=== PATIENT | male | born 1975 | race African-American/Black ===

== ENCOUNTER 2022-11-05 11:41 | Inpatient (IN) | payer OTHER ==
[2022-11-05 12:13] VITALS: BMI 33.2
[2022-11-05] MEDS ORDERED: MAGNESIUM HYDROX 2400MG/30ML ORAL SUSPENSION 30 ML CUP PO PRN (13:31)
[2022-11-05] MEDS ORDERED: BENZONATATE 200 MG CAPSULE PO PRN (13:31)
[2022-11-05] MEDS ORDERED: guaiFENesin 600 MG TABLET.ER (FP) PO PRN (13:31)
[2022-11-05] MEDS ORDERED: LOPERAMIDE HCL 2 MG CAPSULE PO PRN (13:31)
[2022-11-05] MEDS ORDERED: TUBERCULIN PPD 5 TU/0.1ML SYRINGE (IN PATIENT USE ONLY) ID ONE (13:31)
[2022-11-05] MEDS ORDERED: hydrOXYzine PAMOATE 25 MG CAPSULE (FP) PO PRN (13:31)
[2022-11-05] MEDS ORDERED: ACETAMINOPHEN 325 MG TABLET (FP) PO PRN (13:31)
[2022-11-05] MEDS ORDERED: IBUPROFEN 600 MG TABLET (FP) PO PRN (13:31)
[2022-11-05] MEDS ORDERED: NALOXONE HCL (KLOXXADO) 8 MG SPRAY NS PRN (13:31)
[2022-11-05] MEDS ORDERED: POLYETHYLENE GLYCOL (HEALTHYLAX) 3350 17 GM PACKET PO PRN (13:31)
[2022-11-05] MEDS ORDERED: MAG HYDROX/AL HYDROX/SIMETH 30 ML UNIT-DOSE CUP PO PRN (13:31)
[2022-11-05] MEDS ORDERED: BENZOCAINE/MENTHOL (CHLORASEPTIC ) LOZENGE MM PRN (13:31)
[2022-11-05] MEDS ORDERED: NALOXONE HCL 0.4 MG/ML VIAL IM PRN (13:31)
[2022-11-05] MEDS ORDERED: AMMONIUM LACTATE 12% LOTION 225 GM BOTTLE TP PRN (13:31)
[2022-11-05] MEDS ORDERED: COLLOIDAL OATMEAL 1 BAR EACH TP PRN (13:31)
[2022-11-05] MEDS ORDERED: IBUPROFEN 400 MG TABLET (FP) PO PRN (13:31)
[2022-11-05] MEDS ORDERED: TUBERCULIN PPD 5 TU/0.1ML VIAL ID ONE (14:39)
[2022-11-05] MEDS: NICOTINE 7 MG/24 HOURS TOPICAL PATCH TD SCH (15:46)
[2022-11-05] MEDS: PRENATAL VITAMINS W/ FOLIC ACID TABLET (FP) PO SCH (15:48)
[2022-11-05 15:55] VITALS: TEMP 97.5
[2022-11-05] MEDS ORDERED: PATIENT'S OWN MEDICATION (NON-FORMULARY) (Furosemide [Lasix] 80 MG Tablet) PO SCH (16:15)
[2022-11-05] MEDS ORDERED: FUROSEMIDE 40 MG TABLET (FP) PO SCH (16:26)
[2022-11-05] MEDS ORDERED: cloNIDine HCL 0.1 MG TABLET PO ONE (16:45)
[2022-11-05] MEDS: ISOSORBIDE DINITRATE 20 MG TABLET PO SCH (18:11)
[2022-11-05] MEDS: hydrALAZINE HCL 50 MG TABLET (FP) PO SCH (21:42)
[2022-11-05] MEDS: APIXABAN 5 MG TABLET PO SCH (21:43)
[2022-11-05] MEDS ORDERED: PATIENT'S OWN MEDICATION (NON-FORMULARY) (Hydralazine Hcl [Hydralazine Hcl] 100 MG Tablet) PO SCH (22:00)
[2022-11-05] MEDS ORDERED: MELATONIN 5 MG TABLETS PO SCH (22:00)
[2022-11-05] MEDS ORDERED: ISOSORBIDE DINITRATE PO SCH (22:00)
[2022-11-05] MEDS ORDERED: THIAMINE HCL 100 MG TABLET (FP) PO SCH (22:00)
[2022-11-06] MEDS: hydrALAZINE HCL 50 MG TABLET (FP) PO SCH ×2 (06:03→13:19)
[2022-11-06 09:16] VITALS: RESP 18
[2022-11-06] MEDS: ISOSORBIDE DINITRATE 20 MG TABLET PO SCH (09:48)
[2022-11-06] MEDS: APIXABAN 5 MG TABLET PO SCH (09:48)
[2022-11-06] MEDS: PRENATAL VITAMINS W/ FOLIC ACID TABLET (FP) PO SCH (09:48)
[2022-11-06] MEDS: NICOTINE 7 MG/24 HOURS TOPICAL PATCH TD SCH (09:49)
[2022-11-06] MEDS ORDERED: NIFEdipine E.R 60 MG TABLET PO SCH ×2 (10:00)
[2022-11-06] MEDS ORDERED: cloNIDine HCL 0.1 MG TABLET PO SCH (10:00)
[2022-11-06 11:24] LABS: HEMOGLOBIN 9.1 GM/dL (11.7-16.9); MCH 24.6 pg (25.7-33.7); MCHC 31.2 g/dl (32.0-35.9); MEAN CELL VOLUME 78.7 fl (80-96); MEAN PLT VOLUME 9.6 fl (7.5-11.1); PLATELET COUNT 107 10^3/uL (134-434); RBC 3.69 M/mm3 (4.00-5.60); RDW 20.1 % (11.9-15.9)
[2022-11-06 11:29] LABS: POTASSIUM 4.7 mmol/L (3.5-5.1)
[2022-11-06 11:49] LABS: BILIRUBIN,TOTAL 0.5 mg/dL (0.2-1); CREATININE 4.6 mg/dL (0.55-1.3); TOT PROT 7.3 g/dl (6.4-8.2)
[2022-11-06 11:54] LABS: ALBUMIN 3.4 g/dl (3.4-5.0); BLOOD UREA NITROGEN 52.7 mg/dL (7-18); CALCIUM 7.3 mg/dL (8.5-10.1); SYPHILIS W/ RPR CONF NON-REACTIVE (NONREACTIVE)
[2022-11-06] MEDS ORDERED: PNEUMOC 20-VAL CONJ-DIP CRM/PF 0.5 ML SYRINGE IM ONE (12:00)
[2022-11-06 13:55] VITALS: BP 171/103; PULSE 71
== END 2022-11-06 15:55 | disposition home or self-care (01) | DRG 772 ==
LOC: YASAS 11:41 → Y3W 13:14
PROVIDERS: ADMIT Allergy & Immunology; ATTEND Psychiatry & Neurology Pain Medicine
PROC: HZ42ZZZ Group Counseling for Substance Abuse Treatment, Cognitive-Behavioral (ICD-10-PCS; principal; 2022-11-05)
DX: F14.20 Cocaine dependence, uncomplicated (principal); F17.210 Nicotine dependence, cigarettes, uncomplicated; F32.A Depression, unspecified; I25.10 Atherosclerotic heart disease of native coronary artery without angina pectoris; I13.0 Hypertensive heart and chronic kidney disease with heart failure and stage 1 through stage 4 chronic kidney disease, or unspecified chronic kidney disease; N17.9 Acute kidney failure, unspecified; N18.9 Chronic kidney disease, unspecified; I89.0 Lymphedema, not elsewhere classified; I48.91 Unspecified atrial fibrillation; R60.0 Localized edema; Z79.01 Long term (current) use of anticoagulants; Z86.79 Personal history of other diseases of the circulatory system
CPT/HCPCS: 36415; 80053; 85027; 86780; 86803; 87635; 87811; 90677